=== PATIENT | female | born 1955 | race Two or more races ===

== ENCOUNTER 2018-06-08 21:29 | Emergency (ER) | payer SELFPAY ==
[~2018-06-08] VITALS: Ht 170.2 cm; Wt 61.0 kg
[2018-06-08 22:09] LABS: BASOPHILS % 0.8 % (0.0-2.0); HEMATOCRIT. 40.2 % (36.0-48.0); HEMOGLOBIN. 13.5 g/dL (12.0-16.0); LYMPHOCYTES % 25.2 % (20.0-50.0); MEAN CORPUSCULAR HEMOGLOBIN 32.7 pg (28.0-32.0); MEAN CORPUSCULAR VOLUME 97.3 fL (81.0-99.0); MEAN PLATELET VOLUME 8.4 fl (7.4-10.4); MONOCYTES % 6.5 % (2.0-8.0); NEUTROPHILS % 66.5 % (40.0-76.0); PLATELET 219 x1000/uL (130-400); RED BLOOD CELL COUNT 4.13 mill/uL (4.2-5.4)
[2018-06-08 22:14] LABS: CHLORIDE 109 mEq/L (98-107)
[2018-06-08 22:16] LABS: PARTIAL THROMBOPLASTIN TIME 29.5 sec (23.4-31.0)
[2018-06-08] MEDS ORDERED: CALCIUM GLUCONATE 100MG/ML 10ML VIAL IV ONE (23:00)
[2018-06-08] MEDS ORDERED: CALCIUM GLUCONATE 1,000 MG in DEXTROSE 5% WATER 50 ML IV SCH (23:15)
[2018-06-08 23:31] LABS: ETHANOL BLOOD 165 mg/dL
[2018-06-09 01:16] LABS: *AMPHETAMINES SCREEN URINE NEGATIVE (NEGATIVE); *BARBITURATES SCREEN URINE NEGATIVE (NEGATIVE); *BENZODIAZEPINES SCREEN URINE NEGATIVE (NEGATIVE); *COCAINE SCREEN URINE NEGATIVE (NEGATIVE)
[2018-06-09 01:17] LABS: METHADONE URINE SCREEN NEGATIVE (NEGATIVE); OPIATES URINE SCREEN PRESUMTIVE POSITIVE (NEGATIVE); PHENCYCLIDINE URINE SCREEN NEGATIVE (NEGATIVE)
[2018-06-09 01:18] LABS: CANNABINOID URINE SCREEN NEGATIVE (NEGATIVE)
[2018-06-09 09:00] VITALS: BP 145/72
== END 2018-06-09 09:00 | disposition home or self-care (01) ==
LOC: ER 21:29 → CANBEDREQ 06-09 00:59 → ER 06-09 09:00
DX: R07.89 Other chest pain (principal); F41.9 Anxiety disorder, unspecified; R01.1 Cardiac murmur, unspecified; I51.9 Heart disease, unspecified; I10 Essential (primary) hypertension; F17.200 Nicotine dependence, unspecified, uncomplicated; I35.0 Nonrheumatic aortic (valve) stenosis; I70.0 Atherosclerosis of aorta; Z88.2 Allergy status to sulfonamides
CPT/HCPCS: 36415; 71045; 80053; 80305; 83880; 84484; 85025; 85610; 85730; 93005; 96365; 99285; G0482; J0610; J7060